=== PATIENT | female | born 1955 | race African-American/Black ===

== ENCOUNTER 2016-06-04 19:17 | Emergency (ER) | payer BC, SELFPAY ==
[2016-06-04 19:42] LABS: Bilirubin Negative (Negative); Blood, Urine Negative (Negative); Clarity Clear (Clear); Glucose, Urine (Dipstick) Negative (Negative); Leukocyte Small (Negative); Nitrite Negative (Negative); Protein, Urine (Dipstick) Negative (Neg-Trace); Specific Gravity, Urine 1.015 (1.005-1.030); pH, Urine 8.5 (5.0-9.0)
[2016-06-04 19:58] LABS: Bacteria/HPF Rare-Few HPF (None Seen); RBC/HPF 0-3 HPF (0-3); WBC/HPF None Seen HPF (0-3)
[2016-06-04] MEDS ORDERED: Nitrofurantoin Monohyd/M-Cryst 100 MG CAP ONE (20:04)
[2016-06-04] MEDS ORDERED: HYDROcodone/Acetaminophen 10/325 mg Tablet ONE (20:14)
== END 2016-06-04 20:28 | disposition home or self-care (01) ==
LOC: BURERS 19:17
DX: N39.0 Urinary tract infection, site not specified (principal); E03.9 Hypothyroidism, unspecified; I11.0 Hypertensive heart disease with heart failure; I50.9 Heart failure, unspecified; E78.5 Hyperlipidemia, unspecified
CPT/HCPCS: 81003; 81015; 87086; 99283

== ENCOUNTER 2017-03-19 12:07 | Emergency (ER) | payer OTHER, SELFPAY ==
[2017-03-19] MEDS ORDERED: HYDROcodone/Acetaminophen 10/325 mg Tablet ONE (12:38)
[2017-03-19] MEDS ORDERED: Ketorolac Tromethamine 30 MG/ML VIAL ONE (12:38)
== END 2017-03-19 13:00 | disposition home or self-care (01) ==
LOC: BURERS 12:07
DX: S83.422A Sprain of lateral collateral ligament of left knee, initial encounter (principal); E03.9 Hypothyroidism, unspecified; E78.5 Hyperlipidemia, unspecified; I11.0 Hypertensive heart disease with heart failure; I50.9 Heart failure, unspecified; Z86.73 Personal history of transient ischemic attack (TIA), and cerebral infarction without residual deficits; Z79.891 Long term (current) use of opiate analgesic; Z79.899 Other long term (current) drug therapy; X58.XXXA Exposure to other specified factors, initial encounter
CPT/HCPCS: 96372; J1885

== ENCOUNTER 2018-04-24 10:17 | Emergency (ER) | payer SELFPAY ==
[2018-04-24 10:56] LABS: Hemoglobin 12.5 g/dL (12.0-16.0); Mean Corpuscular HGB CONC 32.2 g/dL (32.0-36.0); Mean Corpuscular Hemoglobin 26.1 pg (27.0-31.0); Mean Corpuscular Volume 80.9 fL (78.0-98.0); Platelet Count 200 thou/uL (130-400); RBC Distribution Width 13.4 % (11.5-14.5); White Blood Cell (WBC) Count 6.3 thou/uL (4.8-10.8)
[2018-04-24] MEDS ORDERED: diphenhydrAMINE 25 MG CAP ONE (11:02)
[2018-04-24] MEDS ORDERED: Acetaminophen 500 MG TAB ONE (11:02)
[2018-04-24] MEDS ORDERED: Aspirin Chewable 81 MG TAB ONE (11:02)
[2018-04-24] MEDS ORDERED: Metoclopramide HCl 10 MG/2 ML VIAL ONE (11:02)
[2018-04-24 11:12] LABS: ALT (SGPT) 11 U/L (8-55); AST (SGOT) 21 U/L (5-34); Albumin 3.9 g/dL (3.4-4.8); Alkaline Phosphatase 115 U/L (40-150); Anion Gap 12 mmol/L (10-20); BUN (Urea Nitrogen) 10 mg/dL (9.8-20.1); Bilirubin, Total 0.4 mg/dL (0.2-1.2); Calc. Creatinine Clearance 0 mL/min (70-130); Calcium 9.6 mg/dL (7.8-10.44); Carbon Dioxide 28 mmol/L (23-31); Chloride 104 mmol/L (98-107); Estimated GFR-MDRD Greater than 90; Glucose 97 mg/dL (80-115); Potassium 3.4 mmol/L (3.5-5.1); Protein, Total 7.9 g/dL (6.0-8.3); Sodium 141 mmol/L (136-145)
[2018-04-24 11:15] LABS: Eosinophils 6 % (0-10); Lymphocytes 55 % (21-51); MDiff Complete? YES; Monocytes 4 % (0-10); Neutrophil 35 % (42-75); Platelet Morphology Comment Appears Adequate; RBC Morphology Normal
[2018-04-24] MEDS ORDERED: Ketorolac Tromethamine 30 MG/ML VIAL ONE (13:34)
--- NOTE | 2018-04-24 20:07 | RAD ---
PORTABLE CHEST 04/24/18 An AP portable film at 1010 is compared with a 09/14/16 study. Slight elevation of the right hemidiaphragm is chronic in this patient. No acute infiltrate of concer n was seen. There is no congestion or edema. The heart size remains normal. IMPRESSION: No acute thoracic finding. POS: HOME
== END 2018-04-24 13:42 | disposition home or self-care (01) ==
LOC: BURERS 10:17
DX: G43.909 Migraine, unspecified, not intractable, without status migrainosus (principal); R07.89 Other chest pain; E03.9 Hypothyroidism, unspecified; E78.5 Hyperlipidemia, unspecified; Z86.73 Personal history of transient ischemic attack (TIA), and cerebral infarction without residual deficits; I11.0 Hypertensive heart disease with heart failure; I50.9 Heart failure, unspecified; Z79.899 Other long term (current) drug therapy
CPT/HCPCS: 36415; 71045; 80053; 84484; 85025; 93005; 96361; 96374; 96375; J1885; J2765; Q0163

== ENCOUNTER 2020-01-10 16:06 | Emergency (ER) | payer MEDICARE ==
[2020-01-10 16:41] LABS: Hemoglobin 8.4 g/dL (12.0-16.0); Mean Corpuscular HGB CONC 29.9 g/dL (32.0-36.0); Mean Corpuscular Hemoglobin 25.3 pg (27.0-31.0); Mean Corpuscular Volume 84.7 fL (78.0-98.0); Mean Platelet Volume 7.1 fL (7.4-10.4); Platelet Count 394 thou/uL (130-400); RBC Distribution Width 15.8 % (11.5-14.5); Red Blood Cell (RBC) Count 3.32 mill/uL (4.20-5.40); White Blood Cell (WBC) Count 7.5 thou/uL (4.8-10.8)
[2020-01-10 16:56] LABS: ALT (SGPT) 12 U/L (8-55); AST (SGOT) 18 U/L (5-34); Albumin 3.5 g/dL (3.4-4.8); Alkaline Phosphatase 165 U/L (40-110); Anion Gap 11 mmol/L (10-20); BUN (Urea Nitrogen) 11 mg/dL (9.8-20.1); Bilirubin, Total 0.3 mg/dL (0.2-1.2); Calc. Creatinine Clearance 0 mL/min (70-130); Calcium 8.6 mg/dL (7.8-10.44); Carbon Dioxide 29 mmol/L (23-31); Chloride 99 mmol/L (98-107); Estimated GFR-MDRD Greater than 90; Glucose 98 mg/dL (80-115); Potassium 4.4 mmol/L (3.5-5.1); Protein, Total 7.5 g/dL (6.0-8.3); Sodium 135 mmol/L (136-145)
[2020-01-10 16:58] LABS: #Basophils 0.2 thou/uL (0.0-0.2); #Eosinphils 0.5 thou/uL (0.0-0.7); #Lymphocytes 2.8 thou/uL (1.20-3.40); #Monocytes 0.5 thou/uL (0.11-0.59); #Neutrophils 3.7 thou/uL (1.40-6.50); %Eosinophils 6.4 % (0.0-10.0); %Lymphocytes 36.5 % (21.0-51.0); %Monocytes 6.1 % (0.0-10.0); Elliptocytes SLIGHT = 2-5 cells (100X) (0-1/hpf); Hypochromia SLIGHT = 6-15 cells (100X) (0-5/hpf); MDiff Complete? YES; Macrocytosis SLIGHT = 6-15 cells (100X) (0-5/hpf); Polychromasia SLIGHT = 2-3 cells (100X) (0-2/hpf)
== END 2020-01-10 17:26 | disposition home or self-care (01) ==
LOC: BURERS 16:06
DX: I95.9 Hypotension, unspecified (principal); I11.0 Hypertensive heart disease with heart failure; I50.9 Heart failure, unspecified; M79.7 Fibromyalgia; E03.9 Hypothyroidism, unspecified; E78.5 Hyperlipidemia, unspecified; Z86.73 Personal history of transient ischemic attack (TIA), and cerebral infarction without residual deficits; Z79.899 Other long term (current) drug therapy; Z79.82 Long term (current) use of aspirin
CPT/HCPCS: 36415; 80053; 83605; 84443; 84484; 85025; 93005

== ENCOUNTER 2020-04-13 14:03 | Emergency (ER) | payer MEDICARE ==
[~2020-04-13 14:03] MED LIST: Lidocaine 5% Patch ONE
[2020-04-13] MEDS ORDERED: Lidocaine Viscous Sol 2% 15 ml UD Cup ONE (14:29)
[2020-04-13] MEDS ORDERED: Acetaminophen 500 MG TAB ONE (14:29)
[2020-04-13 15:15] LABS: Hemoglobin 11.1 g/dL (12.0-16.0); Mean Corpuscular HGB CONC 30.5 g/dL (32.0-36.0); Mean Corpuscular Hemoglobin 25.3 pg (27.0-31.0); Mean Corpuscular Volume 82.8 fL (78.0-98.0); Mean Platelet Volume 8.2 fL (7.4-10.4); Platelet Count 134 thou/uL (130-400); RBC Distribution Width 16.2 % (11.5-14.5); Red Blood Cell (RBC) Count 4.39 mill/uL (4.20-5.40); White Blood Cell (WBC) Count 6.5 thou/uL (4.8-10.8)
[2020-04-13 15:20] LABS: ALT (SGPT) 15 U/L (8-55); AST (SGOT) 19 U/L (5-34); Albumin 3.5 g/dL (3.4-4.8); Alkaline Phosphatase 97 U/L (40-110); Anion Gap 15 mmol/L (10-20); BUN (Urea Nitrogen) 6 mg/dL (9.8-20.1); Bilirubin, Total 0.4 mg/dL (0.2-1.2); Calc. Creatinine Clearance 0 mL/min (70-130); Calcium 8.8 mg/dL (7.8-10.44); Carbon Dioxide 28 mmol/L (23-31); Chloride 102 mmol/L (98-107); Globulin 3.8 g/dL (2.4-3.5); Glucose 92 mg/dL (80-115); Lipase 27 U/L (8-78); Potassium 3.9 mmol/L (3.5-5.1); Protein, Total 7.3 g/dL (5.8-8.1); Sodium 141 mmol/L (136-145)
[2020-04-13 15:41] LABS: Bilirubin Moderate (Negative); Blood, Urine Moderate (Negative); Clarity Slightly Cloudy (Clear); Glucose, Urine (Dipstick) Negative (Negative); Ketone, Urine 15 mg/dL (Negative); Leukocyte Negative (Negative); Nitrite Negative (Negative); Protein, Urine (Dipstick) 100 mg/dL (Neg-Trace)
[2020-04-13 16:05] LABS: Specific Gravity, Urine 1.029 (1.002-1.036)
[2020-04-13 16:41] LABS: Band 5 % (5-11); Eosinophils 8 % (0-10); Lymphocytes 36 % (21-51); MDiff Complete? YES; Monocytes 5 % (0-10); Neutrophil 44 % (42-75); Reactive Lymphocytes 1 % (0-10)
[2020-04-13 16:55] LABS: WBC/HPF 0-3 HPF (0-3)
[2020-04-13] MEDS ORDERED: Ketorolac Tromethamine 30 MG/ML VIAL ONE (16:55)
[2020-04-13] MEDS ORDERED: Aspirin Chewable 81 MG TAB ONE (16:55)
[2020-04-13 16:56] LABS: Bacteria/HPF Rare-Few HPF (None Seen)
--- NOTE | 2020-04-13 18:39 | RAD ---
PORTABLE CHEST: Date: 04-13-2020 An AP portable film at 1502 is compared with a prior exam dated 09-14-16. FINDINGS: The depth of inspiration is shallow which precludes seeing some sections of lung as well as others. T here is also elevation of the right hemidiaphragm that partially compresses the right lung, but this is no different than before. Given these limitations, there is so sign of pulmonary infiltrate, effus ion, or congestion. The lungs are clear. IMPRESSION: No significant change since 2017. POS: HOME
== END 2020-04-13 17:31 | disposition home or self-care (01) ==
LOC: BURERS 14:03
DX: K64.4 Residual hemorrhoidal skin tags (principal); K92.2 Gastrointestinal hemorrhage, unspecified; M54.5 Low back pain; Z79.899 Other long term (current) drug therapy; I11.0 Hypertensive heart disease with heart failure; I50.9 Heart failure, unspecified; E03.9 Hypothyroidism, unspecified; E78.5 Hyperlipidemia, unspecified
CPT/HCPCS: 36415; 71045; 80053; 81003; 81015; 83690; 84484; 85025; 93005; 96372; J1885

== ENCOUNTER 2020-04-21 11:16 | Emergency (ER) | payer MEDICARE ==
[2020-04-21 13:22] LABS: #Lymphocytes 1.5 thou/uL (1.20-3.40); #Monocytes 0.2 thou/uL (0.11-0.59); #Neutrophils 2.3 thou/uL (1.40-6.50); %Basophils 0.4 % (0.0-1.0); %Eosinophils 0.1 % (0.0-10.0); %Lymphocytes 37.8 % (21.0-51.0); %Monocytes 5.7 % (0.0-10.0); Hemoglobin 11.5 g/dL (12.0-16.0); Mean Corpuscular HGB CONC 30.1 g/dL (32.0-36.0); Mean Corpuscular Hemoglobin 25.1 pg (27.0-31.0); Mean Corpuscular Volume 83.5 fL (78.0-98.0); Mean Platelet Volume 8.1 fL (7.4-10.4); Platelet Count 256 thou/uL (130-400); RBC Distribution Width 16.3 % (11.5-14.5); Red Blood Cell (RBC) Count 4.57 mill/uL (4.20-5.40)
[2020-04-21 13:32] LABS: ALT (SGPT) 12 U/L (8-55); AST (SGOT) 23 U/L (5-34); Albumin 3.6 g/dL (3.4-4.8); Alkaline Phosphatase 91 U/L (40-110); Anion Gap 14 mmol/L (10-20); BUN (Urea Nitrogen) 6 mg/dL (9.8-20.1); Bilirubin, Total Less than 0.2 mg/dL (0.2-1.2); Calc. Creatinine Clearance 0 mL/min (70-130); Calcium 8.4 mg/dL (7.8-10.44); Carbon Dioxide 29 mmol/L (23-31); Chloride 100 mmol/L (98-107); Globulin 3.9 g/dL (2.4-3.5); Glucose 97 mg/dL (80-115); Protein, Total 7.5 g/dL (5.8-8.1); Sodium 138 mmol/L (136-145)
[2020-04-21] MEDS ORDERED: Iopamidol 370 76% 100 ML VIAL ONE (14:12)
--- NOTE | 2020-04-21 16:10 | RAD ---
PORTABLE CHEST: 04/21/20 An AP portable film at 1216 is compared with a 04/13/20 study. The patient is rotated to the side which makes the sensitivity of the study less in some sections. Th e heart is probably appropriate in size given the rotation, body habitus and portable technique. Ther e is no vascular congestion or edema. The apparent haziness over the left lung is felt to be due to t he rotation. No definite infiltrate was appreciated. Elevation of the right hemidiaphragm is chronic. IMPRESSION: No definite acute findings, however, please see CT report to follow. POS: HOME
--- NOTE | 2020-04-21 16:16 | CT ---
CT ANGIO OF THE CHEST 04/21/[address] of the chest was done for evaluation of this patient with cough. A bolus of IV contrast was given. The opacification of the pulmonary arteries is slightly less than optimal yielding a low to m edial sensitivity study. There was no sign of large emboli in the largest branches. The more lobar si zed branches are such that I cannot be sure. There is no sign of mediastinal mass or adenopathy of re al concern, however, there are definitely small patchy ground glass areas spread throughout the lobes bilaterally. Most of these are rather small but there is a more substantial area in the medial part of the left lower lobe. All of these speak for an infectious etiology, and COVID should be considered until proven otherwise. Scans into the upper abdomen showed some mild prominence of the hepatic size (though it was not seen completely. There is a small low density area in the anterior left lobe that could be a small cyst, h emangioma, etc. The odds are greater than it is a benign finding than not. I did look back at a 2015 [address] done at [facility] and there was a similar finding then. It has not changed much, so I fu rther doubt its significance. IMPRESSION: 1. Low to medium sensitivity study showing no pulmonary embolism in the largest branches. 2. Several patchy ground glass densities in both upper and lower lobes. A more substantial infil trate is seen in the medial left lower lobe. Infection is presumed and COVID should be in the differ ential diagnosis. Chronic infections could also give similar presentations. Preliminary report called to ER at 1452 on 04/21/20. POS: HOME
[2020-04-22 07:41] LABS: SARS-CoV-2 PCR NAA for Saliva DETECTED (NotDetected)
== END 2020-04-21 15:55 | disposition home or self-care (01) ==
LOC: BURERS 11:16
DX: U07.1 COVID-19 (principal); I11.0 Hypertensive heart disease with heart failure; I50.9 Heart failure, unspecified; E03.9 Hypothyroidism, unspecified; E78.5 Hyperlipidemia, unspecified; Z86.73 Personal history of transient ischemic attack (TIA), and cerebral infarction without residual deficits; Z79.899 Other long term (current) drug therapy
CPT/HCPCS: 36415; 71045; 71275; 80053; 83605; 83880; 84484; 85025; 87635; 93005; Q9967; U0003; U0005

== ENCOUNTER 2020-10-02 11:26 | Outpatient (CLI) | payer MEDICARE | END 2020-10-02 11:27 | disposition home or self-care (01) | LOC: BURRAD 11:26 | PROVIDERS: ATTEND Family Medicine | DX: R05 Cough (principal) | CPT/HCPCS: 71046 ==

== ENCOUNTER 2020-11-10 10:47 | Outpatient (CLI) | payer MEDICARE | END 2020-11-10 10:48 | disposition home or self-care (01) | LOC: BURRAD 10:47 | PROVIDERS: ATTEND Internal Medicine Pulmonary Disease | DX: R06.00 Dyspnea, unspecified (principal) | CPT/HCPCS: 71046 ==

== ENCOUNTER 2022-03-30 13:07 | Outpatient (CLI) | payer MEDICARE | END 2022-03-30 13:08 | disposition home or self-care (01) | LOC: BURCT 13:07 | PROVIDERS: ATTEND Family Medicine | DX: G44.89 Other headache syndrome (principal); J32.2 Chronic ethmoidal sinusitis; J32.3 Chronic sphenoidal sinusitis; V87.7XXA Person injured in collision between other specified motor vehicles (traffic), initial encounter | CPT/HCPCS: 70450 ==

== ENCOUNTER 2025-01-28 11:47 | Outpatient (CLI) | payer OTHER | END 2025-01-28 11:48 | disposition home or self-care (01) | LOC: BURRAD 11:47 | PROVIDERS: ATTEND Family Medicine | DX: M54.50 Low back pain, unspecified (principal); Z96.698 Presence of other orthopedic joint implants; M40.46 Postural lordosis, lumbar region; M47.816 Spondylosis without myelopathy or radiculopathy, lumbar region; M47.817 Spondylosis without myelopathy or radiculopathy, lumbosacral region; M48.061 Spinal stenosis, lumbar region without neurogenic claudication | CPT/HCPCS: 72100; 72220 ==